=== PATIENT | male | born 1945 | race Caucasian/White ===

== ENCOUNTER 2016-04-27 19:10 | Inpatient (IN) | payer MEDICARE ==
[2016-04-27] MEDS ORDERED: ALBUTEROL SULFATE 0.083% NEB 2.5 MG/3 ML AMPUL NEB ONE (19:18)
[2016-04-27] MEDS ORDERED: MAGNESIUM SULFATE/D5W 2 GM/200 ML RTUPB IV ONE (19:19)
--- NOTE | 2016-04-27 19:32 | ER Document Report ---
ED General - General Stated Complaint: RESPITORY DISTRESS Cannot obtain history due to: Dementia, Unstable vital signs Notes: Patient is a 70-year-old male with past medical history of dementia who presents by EMS in severe respiratory distress. EMS states that they found the patient bradypneic with a respiratory rate of 4 and a pulse oximetry of 32%. Patient had apparently been found by family to be minimally responsive and EMS was called. He has no history of similar symptoms in the past. He was diagnosed as having a left lower lobe pneumonia in the beginning of April and has completed his antibiotics, did not note significant improvement. He still is currently have home palliative care services due to his progressive dementia and significant associated weight loss. History is otherwise limited secondary to patient's nonverbal status and critical nature at time of arrival. TRAVEL OUTSIDE OF THE [place] IN LAST 30 DAYS: No - Related Data Allergies/Adverse Reactions: Opioids - Morphine Analogues Allergy (Verified 04/28/16 01:09) NARCOTICS Allergy (Severe, Uncoded 02/27/12 14:13) Hallucinations/DELERIUM Home Medications: Current Home Medications Prednisone 20 mg PO DAILY 04/27/16 [History] Past Medical History - General Information source: Emergency Med Personnel Cannot obtain history due to: Dementia - Social History Smoking Status: Unknown if Ever Smoked Frequency of alcohol use: None Drug Abuse: None Lives with: Family Family History: Reviewed & Not Pertinent - Past Medical History Cardiac Medical History: Reports: Hx Hypertension - MEDICATED Denies: Hx Heart Attack Pulmonary Medical History: Denies: Hx Asthma Neurological Medical History: Denies: Hx Cerebrovascular Accident, Hx Seizures GI Medical History: Denies: Hx Hepatitis, Hx Hiatal Hernia, Hx Ulcer Infectious Medical History: Denies: Hx Hepatitis Past Surgical History: Denies: Hx Open Heart Surgery, Hx Pacemaker Review of Systems - Review of Systems -: Yes ROS unobtainable due to patient's medical condition Physical Exam - Vital signs Vitals: Resp Pulse Ox 24 H 88 L 04/27/16 19:14 04/27/16 19:14 Interpretation: Hypotensive, Tachycardic, Hypoxic, Tachypneic Notes: PHYSICAL EXAMINATION: GENERAL: Critically ill in appearance, ashen and marcos. In respiratory distress HEAD: Atraumatic, normocephalic. EYES: Pupils equal round and reactive to light, extraocular movements intact, sclera anicteric, conjunctiva are normal. ENT: nares patent, oropharynx clear without exudates. Dry mucous membranes. NECK: supple without lymphadenopathy LUNGS: Diminished breath sounds on the left relative to the right. Retractions in the supraclavicular and intercostal regions. Patient is in severe respiratory distress. HEART: Regular tachycardia. No murmurs gallops or rubs. ABDOMEN: Soft, rebound or guarding EXTREMITIES: no pitting or edema. No cyanosis. NEUROLOGICAL: Moves all extremities spontaneously but does not follow commands in any extremity. No verbal response. PSYCH: Severe dementia, no verbal response SKIN: Warm, Dry, normal turgor, no rashes or lesions noted. Course - Re-evaluation Re-evalutation: 04/27/16 19:27 Patient arrives in severe respiratory distress on CPAP by EMS. Initial respiratory rate is at 35 with intracostal and supraclavicular retractions. Scattered wheezing bilaterally. Patient was immediately transitioned to our BiPAP and started on a continuous albuterol nebulizer. An immediate bedside ultrasound was performed of the lungs and heart. Lung ultrasound shows no evidence of pneumothorax and no significant pulmonary edema. Bedside echocardiogram shows no regional wall motion abnormalities, no pericardial effusion or tamponade. RV is not dilated. A 1 L bolus has been started. Family did arrive and note that patient was recently diagnosed and pneumonia 20 days ago and has completed a course of outpatient antibiotics. He is currently on palliative care for end-stage dementia and has a current resting heart rate in the 100s at all times. Family and I have reviewed goals of care and have agreed to noninvasive measures including BiPAP, IV fluids, IV antibiotics, and comfort measures but have also established there will be no CPR, intubation, artificial feeding, central line access, or any procedure that is likely to cause significant discomfort. At this time patient remains critically ill and will require frequent reassessments. 04/27/16 20:10 Chest x-ray shows a large left pneumonia with cavitations concerning for possible aspiration pneumonia with staph superinfection. Patient has been started on vancomycin, Zosyn and clindamycin. Clinically appears relatively unchanged since placed on BiPAP. Fluids have been administered. Will continue to monitor closely 04/27/16 20:55 Lactate is elevated at 5 consistent with severe sepsis. Patient is responding to fluids, heart has decreased down to 110 at this time. Respiratory rate is also improved as patient's work of breathing. He continues to be altered but will intermittently attempt to remove the BiPAP mask. I have updated the family at this time regarding patient's ongoing critical condition. Will continue to monitor very closely. 04/27/16 21:35 has accepted for admission. Patient remains critical but stable at this time. - Vital Signs Vital signs: Temp Pulse Resp BP Pulse Ox 97.3 F 97 34 H 112/68 100 04/28/16 02:20 04/28/16 02:20 04/28/16 02:20 04/28/16 02:20 04/28/16 02:20 - Laboratory Result Diagrams: 04/27/16 19:35 04/27/16 19:36 Laboratory results interpreted by me: 04/27/16 04/27/16 04/27/16 19:35 19:36 19:36 WBC 30.0 H* RBC 3.92 L Hgb 9.1 L Hct 30.2 L MCV 77 L MCH 23.3 L MCHC 30.2 L RDW 16.4 H Plt Count 789 H Seg Neuts % (Manual) 88 H Band Neutrophils % 1 L Lymphocytes % (Manual) 9 L Monocytes % (Manual) 1 L Abs Neuts (Manual) 26.7 H Carbonic Acid ABG pH ABG pCO2 ABG HCO3 ABG Total CO2 BUN 31 H Glucose 296 H Lactic Acid 5.2 H Magnesium Alkaline Phosphatase 166 H Creatine Kinase < 20 L NT-Pro-B Natriuret Pep Total Protein 6.0 L Albumin 2.7 L Urine Protein Urine Ascorbic Acid 04/27/16 04/27/16 04/27/16 19:36 19:36 19:53 WBC RBC Hgb Hct MCV MCH MCHC RDW Plt Count Seg Neuts % (Manual) Band Neutrophils % Lymphocytes % (Manual) Monocytes % (Manual) Abs Neuts (Manual) Carbonic Acid ABG pH ABG pCO2 ABG HCO3 ABG Total CO2 BUN Glucose Lactic Acid Magnesium 3.1 H Alkaline Phosphatase Creatine Kinase NT-Pro-B Natriuret Pep 3570 H Total Protein Albumin Urine Protein 30 H Urine Ascorbic Acid 40 H 04/27/16 23:30 WBC RBC Hgb Hct MCV MCH MCHC RDW Plt Count Seg Neuts % (Manual) Band Neutrophils % Lymphocytes % (Manual) Monocytes % (Manual) Abs Neuts (Manual) Carbonic Acid 1.72 H ABG pH 7.30 L ABG pCO2 57.1 H ABG HCO3 27.2 H ABG Total CO2 28.9 H BUN Glucose Lactic Acid Magnesium Alkaline Phosphatase Creatine Kinase NT-Pro-B Natriuret Pep Total Protein Albumin Urine Protein Urine Ascorbic Acid - Diagnostic Test Radiology reviewed: Image reviewed, Reports reviewed Radiology results interpreted by me: 04/27/16 21:36 CXR: Left lower and upper lobe pneumonia with cavitations. - EKG Interpretation by Me Additional EKG results interpreted by me: 04/28/16 04:14 Sinus tachycardia. Rate 114. No ST elevations or depressions. QTC 469. Critical Care Note - Critical Care Note Total time excluding time spent on procedures (mins): 40 Comments: Critical care time spent obtaining history from patient or surrogate, discussions with consultants, development of treatment plan with patient or surrogate, evaluation of patient's response to treatment, examination of patient , ordering and performing treatments and interventions, ordering and review of laboratory studies, re-evaluation of patient's condition, ordering and review of radiographic studies and review of old charts Discharge - Discharge Clinical Impression: Severe sepsis, Respiratory distress Pneumonia Qualifiers: Pneumonia type: aspiration pneumonia Aspiration pneumonia type: unspecified Laterality: left Lung location: upper lobe of lung Qualified Code(s): J69.0 - Pneumonitis due to inhalation of food and vomit Condition: Critical Disposition: ADMITTED INPATIENT Admitting Provider: [place] [facility] Admitted: [facility]
[2016-04-27] MEDS ORDERED: NORMAL SALINE 1000 ML 1,000 ML IV ONE ×3 (19:36→20:56)
[2016-04-27 19:49] LABS: HEMATOCRIT 30.2 % (37.9-51.0); HEMOGLOBIN 9.1 g/dL (13.5-17.0); HGB HCT DIFFERENCE -2.9; MEAN CORPUSCULAR HEMOGLOBIN 23.3 pg (27.0-33.4); MEAN CORPUSCULAR HGB CONC 30.2 g/dL (32.0-36.0); MEAN CORPUSCULAR VOLUME 77 fl (80-97); RED BLOOD COUNT 3.92 10^6/uL (4.35-5.55); RED CELL DISTRIBUTION WIDTH 16.4 % (11.5-14.0)
[2016-04-27 20:06] LABS: ALANINE AMINOTRANSFERASE 45 U/L (21-72); ALBUMIN 2.7 g/dL (3.5-5.0); ALKALINE PHOSPHATASE 166 U/L (38-126); ANION GAP 16 (5-19); ASPARTATE AMINO TRANSFERASE 25 U/L (17-59); BILIRUBIN,TOTAL 0.4 mg/dL (0.2-1.3); BLOOD UREA NITROGEN 31 mg/dL (7-20); CALCIUM 8.9 mg/dL (8.4-10.2); CARBON DIOXIDE 28 mmol/L (22-30); CHLORIDE 101 mmol/L (98-107); CREATININE RESULT 0.89 mg/dL (0.52-1.25); GLUCOSE 296 mg/dL (75-110); POTASSIUM 4.3 mmol/L (3.6-5.0); SODIUM 144.5 mmol/L (137-145)
[2016-04-27 20:07] LABS: CREATINE KINASE < 20 U/L (55-170)
[2016-04-27] MEDS ORDERED: CLINDAMYCIN PHOSPHATE INJ 300 MG/2 ML SDV IV ONE (20:09)
[2016-04-27] MEDS ORDERED: VANCOMYCIN HCL INJ 1000 MG VIAL IV ONE (20:10)
[2016-04-27] MEDS ORDERED: PIPERACILLIN/TAZOBACTAM 3.375 GM VIAL IV ONE (20:10)
[2016-04-27 20:11] LABS: ANISOCYTOSIS 1+; BAND NEUTROPHILS % (MANUAL) 1 % (3-5); BASOPHILS % (MANUAL) 0 % (0-2); EOSINOPHILS % (MANUAL) 0 % (0-6); LYMPHOCYTES % (MANUAL) 9 % (13-45); MICROCYTOSIS SLIGHT; OVALOCYTES SLIGHT; POIKILOCYTOSIS SLIGHT; TOTAL CELLS COUNTED 100
[2016-04-27 20:12] LABS: TOXIC GRANULATION SLIGHT
[2016-04-27 20:25] LABS: CREATINE KINASE MB < 0.22 ng/mL (<4.55); TROPONIN I < 0.012 ng/mL
[2016-04-28 00:30] LABS: ARTERIAL BLOOD BASE EXCESS 0.2 mmol/L; ARTERIAL BLOOD O2 SATURATION 96.7 % (94-98)
[2016-04-28] MEDS ORDERED: VANCOMYCIN HCL 0 MG in DEXTROSE 5%-WATER 250 ML IV NR (00:45)
[2016-04-28] MEDS ORDERED: DEXTROSE 40% GEL 15 GM TUBE PO PRN ×2 (00:46)
[2016-04-28] MEDS ORDERED: DEXTROSE 50%-WATER 25 GM/50 ML DISP.SYRIN IV PRN ×2 (00:46)
[2016-04-28] MEDS ORDERED: GLUCAGON,HUMAN RECOMB 1 MG INJ IM PRN (00:46)
[2016-04-28] MEDS ORDERED: INSULIN LISPRO 100 UNIT/ML 3 ML VIAL SUBCUT PRN (00:46)
[2016-04-28] MEDS ORDERED: ACETAMINOPHEN 325 MG TABLET PO PRN (00:49)
[2016-04-28] MEDS ORDERED: ALBUTEROL SULFATE 0.083% NEB 2.5 MG/3 ML AMPUL NEB PRN (00:49)
[2016-04-28] MEDS ORDERED: GUAIFENESIN SYRP 200 MG/10 ML UDC PO PRN (00:49)
[2016-04-28 00:54] LABS: ADD ON TESTING BLD IN LAB ACKNOWLEDGE
[2016-04-28 01:10] LABS: MAGNESIUM 3.1 mg/dL (1.6-2.3)
[2016-04-28] MEDS ORDERED: CEFEPIME 2 GM/D5W RTU 2 GM/50 ML RTUPB IV ONE ×3 (01:30→05:00)
--- NOTE | 2016-04-28 01:33 | PDOC H&P ---
History of Present Illness Admission Date/PCP: 04/27/16 21:41 Pablo Lemus Patient complains of: DIFFICULTY BREATHING History of Present Illness: IRAIS KERR JR is a 70 year old male with reportedly no underlying chronic lung pathology, along with severe dementia, hypertension, prostatic hypertrophy, hyperlipidemia, who presents to the emergency room by EMS for evaluation of above complaint. Patient has been discussed with emergency room physician who evaluated the patient. Patient has underlying dementia, and is somewhat fatigued and is able to provide no history whatsoever in terms of acute or chronic events, review of systems, personal habits, family history, etc. and children are present, and are quite helpful informative. No inpatient records available for review. Patient was diagnosed with left-sided pneumonia the fifth of this month and was treated with a Z-Juan Manuel, along with tapering courses of steroids. For the past 10 days, has had a cough productive of gradually increasing amounts of mucus. No nausea vomiting, diarrhea or dysuria. No fever or shaking chills per se, although patient has had prominent night sweats over the past several days. Mild abdominal discomfort, only with a cough. Sudden worsening of his respiratory distress shortly prior to arrival. Significant respiratory distress upon arrival. Had already been started on CPAP by EMS. Aggressive evaluation and treatment by the emergency room physician has resulted in significant improvement in his work of breathing and clinical appearance. Please see emergency room physician admitting notes, which are reviewed. 30 pound unintentional weight loss over the past month or so, due at least in part to poor by mouth intake. Underlying obstructive sleep apnea, although recently with the onset of his pneumonia, has been noncompliant with his CPAP. Has been followed at home by palliative care nurse. Patient has portable DO NOT RESUSCITATE for severe dementia.. Laboratory results are listed in Faves and are reviewed. X-ray summary results are listed below, with full report(s) reviewed. . EKG reviewed. No old EKG available for comparison. Social history/personal habits: . Lives with . Ambulates without assistance. Has children. No tobacco use since August 2008. No alcohol or illicit drug use. Allergies/adverse reactions are listed in Faves and are reviewed. Home medications are reviewed by discussion with and review of a hand written list provided by family and are to be reconciled by nursing staff in [employer]. Home medications initially autopopulated into [employer] may not accurately reflect patient's true medications, dosages, and/or frequencies. REVIEW OF SYSTEMS: Constitutional: See history and present illness. Eyes: No current vision complaints. ENT: No swallowing problems or complaints. Partial hearing loss. Pulmonary: See history and present illness. Cardiovascular: No current complaints, including chest pain. Gastrointestinal: See history and present illness. Skin: No current complaints, including rashes. Hematologic: Easy bruising. Neurologic: No current complaints, including numbness or tingling. Musculoskeletal: No current complaints, including painful joints. Psychiatric: Anxiety depression; denies suicidal or homicidal ideation. Endocrine: No current complaints, including polyuria. Genitourinary: No current complaints, including dysuria. PHYSICAL EXAMINATION: 5 feet 11 inches tall. 60.3 kg. BMI 18.5 kg/m. Blood pressure 115/75. Pulse 97 and regular. 98% saturation on BiPAP 12/6, 100% FiO2. Respirations are 29 and unlabored. Temperature 98.2. Thin chronically ill-appearing male appearing a bit older than his stated age. Awake alert pleasant and cooperative. Mildly anxious, without agitation. Skin is warm and dry. No grossly obvious evidence of rash in areas of skin examined. No subcutaneous nodules palpated. ENT: Hearing grossly normal to normal conversation. Tongue midline on protrusion pink and slightly tacky. Exam slightly limited by BiPAP mask with attaching straps. Eyes: No scleral icterus. Pupils equal and reactive to light at 4 mm. [place] conjunctivae. Neck is supple and nontender to gentle active range of motion and palpation. Midline trachea. No palpable thyroid nodule mass enlargement or tenderness. Lymphatic: No palpable cervical or clavicular nodes. Neck and lymphatic exams limited by patient body habitus. Exam slightly limited by BiPAP mask with attaching straps. Psychiatric: Can't be adequately evaluated due to combination of his current status and underlying severe dementia. Lungs: Auscultation reveals clear breath sounds bilaterally. No use of accessory respiratory muscles. Intermittent slightly productive cough. Decreased breath sounds in the left lower hemithorax. Cardiovascular: Heart regular rate and rhythm, without gallop murmur or rub. No carotid or abdominal aortic bruits. No ankle or pedal edema. Faintly palpable dorsalis pedis pulses. Abdomen: soft, , slightly distended nontender with positive bowel sounds. Unable to adequately evaluate abdomen for masses or organomegaly due to distention. Extremities: Feet are warm and dry. No calf tenderness to compression. No grossly obvious visual evidence of calf swelling. Gentle manipulation of lower extremities fails to reveal any obvious evidence of injury or instability to knees hips or ankles. Slight muscle loss, left calf. 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 Patellar reflexes absent. Absent Babinski. Light touch can't be determined due to his current status.. Dorsiflexion and plantarflexion of feet 5 / 5 and symmetric. Past Medical History Cardiac Medical History: Reports: Hyperlipidema, Hypertension - MEDICATED Denies: Congestive Heart Failure, DVT, Myocardial Infarction, Pulmonary Embolism Pulmonary Medical History: Reports: Sleep Apnea Denies: Asthma EENT Medical History: Reports: Ears - Partial hearing loss Denies: Eyes, Throat Neurological Medical History: Denies: Hemorrhagic CVA, Ischemic CVA, Seizures Endocrine Medical History: Denies: Diabetes Mellitus Type 1, Diabetes Mellitus Type 2, Hyperthyroidism, Hypothyroidism Renal/ Medical History: Reports: Other - Prostatic hypertrophy Malignancy Medical History: Reports: Skin Cancer GI Medical History: Denies: Cirrhosis, Gastroesophageal Reflux Disease, Hepatitis, Hiatal Hernia , Peptic Ulcer Disease Musculoskeltal Medical History: Denies: Arthritis Skin Medical History: Denies: Eczema, Psoriasis Psychiatric Medical History: Reports: Dementia, Depression, General Anxiety Disorder Denies: Alcohol Dependency, Substance Abuse, Tobacco Dependency Hematology: Reports: Other - Easy bruising Infectious Medical History: Denies: Hepatitis B, Hepatitis C Past Surgical History Past Surgical History: Reports: Orthopedic Surgery - Left total knee replacement , Other - Open repair of an abdominal aortic aneurysm, 2008. Skin cancer excision. Social History Information Source: Relative, Emergency Med Personnel, [facility] Records Lives with: Spouse/Significant other Smoking Status: Former Smoker Frequency of Alcohol Use: None Hx Recreational Drug Use: No Drugs: None - Advance Directive Resuscitation Status: Do Not Resuscitate - Portable DO NOT RESUSCITATE on chart. Family History Parental Family History Reviewed: Yes Children Family History Reviewed: Yes Sibling(s) Family History Reviewed.: Yes Medication/Allergy Home Medications: Doxazosin Mesylate [Cardura 4 Mg Tablet] 4 mg PO DAILY 02/27/12 Benazepril HCl 20 mg PO DAILY 07/25/15 Lovastatin [Altoprev] 20 mg PO DAILY 07/25/15 Sertraline HCl 25 mg PO DAILY 07/25/15 Prednisone 20 mg PO DAILY 04/27/16 Allergies/Adverse Reactions: NARCOTICS Allergy (Severe, Uncoded 02/27/12 14:13) Hallucinations/DELERIUM Physical Exam Vital Signs: Temp Pulse Resp BP Pulse Ox 98.2 F 22 H 113/71 100 04/27/16 19:35 04/28/16 00:00 04/27/16 22:15 04/28/16 00:00 Intake & Output 04/26/16 04/27/16 04/28/16 00:59 00:59 00:59 Weight 60.3 kg Results Laboratory Results: 04/27/16 23:30 Carbonic Acid 1.72 H HCO3/H2CO3 Ratio 15:1 ABG pH 7.30 L ABG pCO2 57.1 H ABG pO2 99.2 ABG HCO3 27.2 H ABG O2 Saturation 96.7 ABG Base Excess 0.2 FiO2 100% Impressions: Chest X-Ray 04/27/16 19:35 IMPRESSION: LARGE AIRSPACE OPACITY LEFT LUNG WITH CENTRAL LUCENCIES COULD REPRESENT NECROSIS/ CAVITATION IN THE SETTING OF PNEUMONIA OR NEOPLASM. CORRELATE WITH PATIENT'S CLINICAL HISTORY AND CONSIDER FURTHER EVALUATION WITH CONTRAST-ENHANCED CT CHEST IF THIS IS A NEW FINDING. Assessment & Plan - Diagnosis (1) Acute respiratory failure Qualifiers: Respiratory failure complication: hypercapnia Qualified Code(s): J96.02 - Acute respiratory failure with hypercapnia Is this a current diagnosis for this admission?: Yes (2) Anemia Qualifiers: Anemia type: unspecified type Qualified Code(s): D64.9 - Anemia, unspecified Is this a current diagnosis for this admission?: YesPlan: No need for transfusion at present time. Follow-up CBC with differential. (3) Pneumonia involving left lung Qualifiers: Pneumonia type: due to unspecified organism Lung location: lower lobe of lung Qualified Code(s): J18.1 - Lobar pneumonia, unspecified organism Is this a current diagnosis for this admission?: YesPlan: Patient will be admitted under COPD exacerbation and pneumonia protocol. Incentive spirometry twice a day. Scheduled DuoNeb's. PRN albuterol nebs Solu-Medrol IV Pepcid for gastritis prophylaxis. Pulmonology consult. Antibiotics will consist of intravenous Levaquin and vancomycin, along with cefepime. Pharmacy to assist with vancomycin dosing.. I've encouraged family to remind patient not to get out of bed without notifying staff , to avoid a fall with injury. Knee high SCDs for DVT prophylaxis, along with subcutaneous heparin. Impression and plans were discussed with family, who concur. Time spent in evaluation and management of patient: 74 minutes. (4) Weight loss, non-intentional Is this a current diagnosis for this admission?: YesPlan: Likely due at least in part to underlying dementia. Failed swallow screen, so currently nothing by mouth. (5) DNR (do not resuscitate) Is this a current diagnosis for this admission?: YesPlan: Portable document on chart. Implications of DO NOT RESUSCITATE/DO NOT INTUBATE status discussed with and children. Discussed in layperson's terms. Implications understood. is the health care decision maker. Her conversation is lucid and appropriate. She desires DO NOT RESUSCITATE/DO NOT INTUBATE status. Will honor their wishes. (6) HTN (hypertension) Qualifiers: Hypertension type: essential hypertension Qualified Code(s): I10 - Essential (primary) hypertension Is this a current diagnosis for this admission?: YesPlan: Follow clinically. Nothing by mouth. When necessary parenteral medication. (7) Hyperlipidemia Qualifiers: Hyperlipidemia type: unspecified Qualified Code(s): E78.5 - Hyperlipidemia, unspecified Is this a current diagnosis for this admission?: YesPlan: Nothing by mouth.Resume home medications as appropriate once these have been reviewed and when oral intake resumes. (8) Dementia Qualifiers: Dementia type: unspecified type Dementia behavioral disturbance: with behavioral disturbance Qualified Code(s): F03.91 - Unspecified dementia with behavioral disturbance Is this a current diagnosis for this admission?: YesPlan: Family understands underlying confusion due to dementia will likely worsen while he is hospitalized. - Inpatient Certification Based on my medical assessment, after consideration of the patient's comorbidities, presenting symptoms, or acuity I expect that the services needed warrant INPATIENT care.: Yes I certify that my determination is in accordance with my understanding of Medicare's requirements for reasonable and necessary INPATIENT services [42 CFR 412.3e].: Yes Medical Necessity: Significant Comorbidiites Make Outpatient Treatment Too Risky , Need Close Monitoring Due to Risk of Patient Decompensation, Need For IV Fluids, Need For Continuous Telemetry Monitoring, Need for Nebulizer Therapy and Monitoring of Response, Need for IV Antibiotics, Risk of Complication if Not Cared For in Hospital, Risk of Diagnosis Which Will Require Inpatient Eval/ Care/Monitoring Post Hospital Care: D/C or Transfer Summary
[2016-04-28 01:50] LABS: AMORPHOUS SEDIMENT,URINE TRACE /HPF; APPEARANCE,URINE TURBID; BILIRUBIN,URINE NEGATIVE (NEGATIVE); GLUCOSE, URINE NEGATIVE (NEGATIVE); KETONES,URINE NEGATIVE (NEGATIVE); LEUKOCYTE ESTERASE,URINE NEGATIVE (NEGATIVE); NITRITE,URINE NEGATIVE (NEGATIVE); PROTEIN,URINE 30 mg/dL (NEGATIVE); URINE SPECIFIC GRAVITY 1.026; UROBILINOGEN,URINE NEGATIVE mg/dL (<2.0)
[2016-04-28] MEDS ORDERED: LEVOFLOXACIN 750 MG/D5W RTU 750 MG/150 ML RTUPB IV ONE (02:00)
[2016-04-28] MEDS: 1/2 NORMAL SALINE 1,000 ML IV PRN ×2 (03:24→18:51)
[2016-04-28] MEDS: METHYLPREDNISOLONE INJ 40 MG/1 ML SDV IV SCH ×3 (05:21→21:58)
[2016-04-28 05:38] LABS: VENOUS BLOOD BASE EXCESS 1.4 mmol/L; VENOUS BLOOD PCO2 41.2 mmHg (35-63); VENOUS BLOOD PH 7.42 (7.30-7.42)
[2016-04-28 05:53] LABS: HEMATOCRIT 26.8 % (37.9-51.0); HEMOGLOBIN 8.2 g/dL (13.5-17.0); HGB HCT DIFFERENCE -2.2; MEAN CORPUSCULAR HGB CONC 30.6 g/dL (32.0-36.0); MEAN CORPUSCULAR VOLUME 75 fl (80-97); RED BLOOD COUNT 3.57 10^6/uL (4.35-5.55); RED CELL DISTRIBUTION WIDTH 16.1 % (11.5-14.0); WHITE BLOOD COUNT 28.8 10^3/uL (4.0-10.5)
[2016-04-28 05:56] LABS: ANION GAP 10 (5-19); BLOOD UREA NITROGEN 33 mg/dL (7-20); CALCIUM 7.9 mg/dL (8.4-10.2); CARBON DIOXIDE 25 mmol/L (22-30); CHLORIDE 110 mmol/L (98-107); CREATININE RESULT 0.79 mg/dL (0.52-1.25); GLUCOSE 169 mg/dL (75-110); POTASSIUM 3.9 mmol/L (3.6-5.0); SODIUM 145.4 mmol/L (137-145)
[2016-04-28 06:11] LABS: BASOPHILS % (MANUAL) 0 % (0-2); EOSINOPHILS % (MANUAL) 0 % (0-6); LYMPHOCYTES % (MANUAL) 2 % (13-45); TOTAL CELLS COUNTED 100
[2016-04-28 06:14] LABS: ANISOCYTOSIS 1+; HYPOCHROMASIA 1+; MICROCYTOSIS 1+; TOXIC GRANULATION 1+
[2016-04-28] MEDS ORDERED: IPRATROPIUM/ALBUTEROL 0.5-2.5 MG/3 ML AMPUL NEB SCH (08:00)
[2016-04-28] MEDS ORDERED: CEFEPIME 2 GM/D5W RTU 2 GM/50 ML RTUPB IV SCH (10:00)
[2016-04-28] MEDS ORDERED: ASPIRIN 300 MG SUPP, RECTAL PR SCH (10:00)
[2016-04-28] MEDS: HEPARIN SOD (PORCINE) 5,000 UNIT/ML 1 ML SYRINGE SUBCUT SCH ×2 (10:59→21:58)
[2016-04-28] MEDS: FAMOTIDINE INJ/PF 20 MG/2 ML SDV IV SCH ×2 (11:00→21:58)
[2016-04-28] MEDS ORDERED: GUAIFENESIN 600 MG TABLET.SA PO ONE (12:00)
[2016-04-28] MEDS ORDERED: PIPERACILLIN SODIUM/TAZOBACTAM 4.5 GM in NORMAL SALINE 100 ML IV ONE (13:00)
[2016-04-28] MEDS ORDERED: VANCOMYCIN HCL 750 MG in DEXTROSE 5%-WATER 250 ML IV ONE (15:00)
--- NOTE | 2016-04-28 15:17 | EKG REPORT ---
SEVERITY:- ABNORMAL ECG - SINUS TACHYCARDIA ATRIAL PREMATURE COMPLEX PROBABLE LEFT ATRIAL ABNORMALITY PROBABLE INFERIOR INFARCT, AGE INDETERMINATE : Confirmed by: Princess Pitts MD 28-Apr-2016 15:16:45
[2016-04-28] MEDS: GUAIFENESIN SYRP 200 MG/10 ML UDC PO SCH ×2 (17:12→21:58)
[2016-04-28] MEDS: ACETAMINOPHEN 650 MG SUPP.RECT PR PRN ×2 (17:12→23:11)
--- NOTE | 2016-04-28 17:49 | PDOC PROGRESS REPORT ---
Subjective Progress Note for:: 04/28/16 Subjective:: The patient was seen earlier today on rounds. The patient is unable to provide any history. Family is present the bedside I given the patient's care. It appears that the patient was unable to clear secretions I discussed comfort measures. We have agreed to proceed with aggressive pneumonia management today including NTS suction if needed and will address how the patient tolerated this tomorrow and discuss management after that. There have been no reported episodes of vomiting nor diarrhea. Physical Exam Vital Signs: Temp Pulse Resp BP Pulse Ox 97.8 F 85 22 H 141/81 H 97 04/28/16 16:00 04/28/16 16:00 04/28/16 15:48 04/28/16 16:00 04/28/16 16:00 Intake & Output 04/26/16 04/27/16 04/28/16 23:59 23:59 23:59 Intake Total 378 Output Total 150 Balance 228 Weight 56.5 kg General appearance: PRESENT: disheveled, thin Head exam: PRESENT: atraumatic, normocephalic Eye exam: PRESENT: conjunctiva pale, EOMI, PERRLA. ABSENT: scleral icterus Ear exam: PRESENT: normal external ear exam Mouth exam: PRESENT: dry mucosa, tongue midline Neck exam: ABSENT: carotid bruit, JVD, lymphadenopathy, thyromegaly Respiratory exam: PRESENT: rhonchi, symmetrical, tachypnea, wheezes. ABSENT: rales, unlabored Cardiovascular exam: PRESENT: RRR. ABSENT: diastolic murmur, rubs, systolic murmur Pulses: PRESENT: normal dorsalis pedis pul Vascular exam: PRESENT: normal capillary refill GI/Abdominal exam: PRESENT: normal bowel sounds, soft. ABSENT: distended, guarding, mass, organolmegaly, rebound, tenderness Rectal exam: PRESENT: deferred Extremities exam: ABSENT: calf tenderness, clubbing, pedal edema Neurological exam: PRESENT: alert, altered, awake. ABSENT: motor sensory deficit Psychiatric exam: PRESENT: other - Demented Skin exam: PRESENT: dry, intact, warm. ABSENT: cyanosis, rash Results Laboratory Results: 04/28/16 05:26 04/28/16 05:26 04/28/16 04/28/16 04/28/16 00:50 05:26 05:26 WBC 28.8 H RBC 3.57 L Hgb 8.2 L Hct 26.8 L MCV 75 L MCH 23.0 L MCHC 30.6 L RDW 16.1 H Plt Count 457 H Seg Neutrophils % Not Reportable Lymphocytes % Not Reportable Monocytes % Not Reportable Eosinophils % Not Reportable Basophils % Not Reportable Absolute Neutrophils Not Reportable Absolute Lymphocytes Not Reportable Absolute Monocytes Not Reportable Absolute Eosinophils Not Reportable Absolute Basophils Not Reportable VBG pH VBG pCO2 VBG HCO3 VBG Base Excess Sodium 145.4 H Potassium 3.9 Chloride 110 H Carbon Dioxide 25 Anion Gap 10 BUN 33 H Creatinine 0.79 Est GFR ( Amer) > 60 Est GFR (Non-Af Amer) > 60 Glucose 169 H Lactic Acid 2.4 H Calcium 7.9 L 04/28/16 05:26 WBC RBC Hgb Hct MCV MCH MCHC RDW Plt Count Seg Neutrophils % Lymphocytes % Monocytes % Eosinophils % Basophils % Absolute Neutrophils Absolute Lymphocytes Absolute Monocytes Absolute Eosinophils Absolute Basophils VBG pH 7.42 VBG pCO2 41.2 VBG HCO3 26.0 VBG Base Excess 1.4 Sodium Potassium Chloride Carbon Dioxide Anion Gap BUN Creatinine Est GFR ( Amer) Est GFR (Non-Af Amer) Glucose Lactic Acid Calcium Impressions: Chest X-Ray 04/27/16 19:35 IMPRESSION: LARGE AIRSPACE OPACITY LEFT LUNG WITH CENTRAL LUCENCIES COULD REPRESENT NECROSIS/ CAVITATION IN THE SETTING OF PNEUMONIA OR NEOPLASM. CORRELATE WITH PATIENT'S CLINICAL HISTORY AND CONSIDER FURTHER EVALUATION WITH CONTRAST-ENHANCED CT CHEST IF THIS IS A NEW FINDING. Assessment & Plan - Diagnosis (1) Acute respiratory failure Qualifiers: Respiratory failure complication: hypercapnia Qualified Code(s): J96.02 - Acute respiratory failure with hypercapnia Is this a current diagnosis for this admission?: YesPlan: Patient's repeat blood gas is much improved. Will continue nasal cannula (2) Anemia Qualifiers: Anemia type: unspecified type Qualified Code(s): D64.9 - Anemia, unspecified Is this a current diagnosis for this admission?: Yes (3) Pneumonia Qualifiers: Pneumonia type: aspiration pneumonia Aspiration pneumonia type: unspecified Laterality: left Lung location: upper lobe of lung Qualified Code(s): J69.0 - Pneumonitis due to inhalation of food and vomit Is this a current diagnosis for this admission?: YesPlan: High suspicion for aspiration. Continue broad-spectrum coverage. The patient is rhonchorous throughout. Discussed exploring it with the family however the patient is unable to spit it up. If the patient does not get any benefit or is distressed from sputum collection can have NTS (4) Severe sepsis Is this a current diagnosis for this admission?: YesPlan: The family is pursuing conservative management at this time. White count did improve. (5) Weight loss, non-intentional Is this a current diagnosis for this admission?: Yes (6) Dementia Qualifiers: Dementia type: Alzheimer's disease Dementia behavioral disturbance: with behavioral disturbance Is this a current diagnosis for this admission?: Yes (7) HTN (hypertension) Qualifiers: Hypertension type: essential hypertension Qualified Code(s): I10 - Essential (primary) hypertension Is this a current diagnosis for this admission?: Yes (8) Hyperlipidemia Qualifiers: Hyperlipidemia type: unspecified Qualified Code(s): E78.5 - Hyperlipidemia, unspecified Is this a current diagnosis for this admission?: Yes (9) DNR (do not resuscitate) Is this a current diagnosis for this admission?: Yes - Time Time Spent with patient: on this visit including assessment, plan, physical examination, family meeting, and patient education is 35 minutes. Time Spent with patient: 35 or more minutes Medications reviewed and adjusted accordingly: Yes Disposition: The patient is a DO NOT RESUSCITATE DO NOT INTUBATE. Pending patient's symptomatology and diagnostic findings will reevaluate as needed.
[2016-04-28] MEDS ORDERED: CEFEPIME HCL 2 GM in DEXTROSE 5%-WATER 50 ML IV SCH (18:00)
[2016-04-28] MEDS: PIPERACILLIN SODIUM/TAZOBACTAM 4.5 GM in NORMAL SALINE 100 ML IV SCH (21:57)
[2016-04-28] MEDS ORDERED: GUAIFENESIN 600 MG TABLET.SA PO SCH (22:00)
[2016-04-28] MEDS ORDERED: LEVOFLOXACIN 750 MG/D5W RTU 750 MG/150 ML RTUPB IV SCH (22:00)
[2016-04-29] MEDS: 1/2 NORMAL SALINE 1,000 ML IV PRN (03:48)
[2016-04-29] MEDS: PIPERACILLIN SODIUM/TAZOBACTAM 4.5 GM in NORMAL SALINE 100 ML IV SCH ×2 (03:48→08:43)
[2016-04-29] MEDS ORDERED: 1/2 NORMAL SALINE 1,000 ML IV PRN (04:20)
[2016-04-29 05:02] LABS: HEMATOCRIT 25.2 % (37.9-51.0); HGB HCT DIFFERENCE -1.2; MEAN CORPUSCULAR HEMOGLOBIN 23.4 pg (27.0-33.4); MEAN CORPUSCULAR HGB CONC 31.6 g/dL (32.0-36.0); MEAN CORPUSCULAR VOLUME 74 fl (80-97); RED CELL DISTRIBUTION WIDTH 16.2 % (11.5-14.0); WHITE BLOOD COUNT 15.8 10^3/uL (4.0-10.5)
[2016-04-29 05:22] LABS: VENOUS BLOOD BASE EXCESS 1.2 mmol/L; VENOUS BLOOD HCO3 26.7 mmol/L (20-32); VENOUS BLOOD PCO2 46.9 mmHg (35-63); VENOUS BLOOD PH 7.37 (7.30-7.42)
[2016-04-29 05:28] LABS: ANION GAP 8 (5-19); BLOOD UREA NITROGEN 34 mg/dL (7-20); CALCIUM 8.2 mg/dL (8.4-10.2); CARBON DIOXIDE 25 mmol/L (22-30); CHLORIDE 111 mmol/L (98-107); CREATININE RESULT 0.74 mg/dL (0.52-1.25); GLUCOSE 107 mg/dL (75-110); MAGNESIUM 2.5 mg/dL (1.6-2.3); SODIUM 144.4 mmol/L (137-145)
[2016-04-29] MEDS: METHYLPREDNISOLONE INJ 40 MG/1 ML SDV IV SCH (05:49)
[2016-04-29] MEDS ORDERED: VANCOMYCIN HCL 750 MG in DEXTROSE 5%-WATER 250 ML IV SCH (06:00)
[2016-04-29] MEDS: ACETAMINOPHEN 650 MG SUPP.RECT PR PRN (08:43)
[2016-04-29] MEDS ORDERED: SERTRALINE HCL 50 MG TABLET PO SCH (10:00)
[2016-04-29] MEDS ORDERED: ASPIRIN 81 MG TABLET, ENT COATED PO SCH (10:00)
[2016-04-29] MEDS ORDERED: DOXAZOSIN MESYLATE 4 MG TABLET PO SCH (10:00)
[2016-04-29] MEDS ORDERED: (PENDING PHARMACY ID) (Sertraline Hcl [Zoloft] 25 MG) PO SCH (10:00)
[2016-04-29] MEDS: GUAIFENESIN SYRP 200 MG/10 ML UDC PO SCH (11:38)
[2016-04-29] MEDS: FAMOTIDINE INJ/PF 20 MG/2 ML SDV IV SCH (11:38)
[2016-04-29] MEDS: HEPARIN SOD (PORCINE) 5,000 UNIT/ML 1 ML SYRINGE SUBCUT SCH (11:47)
--- NOTE | 2016-04-29 13:16 | PDOC DISCHARGE SUMMARY ---
General - Admit/Disc Date/PCP Admission Date/Primary Care Provider: 04/27/16 23:55 Pablo Lemus Discharge Date: 04/29/16 - Discharge Diagnosis (1) Alzheimer's dementia with behavioral disturbance Is this a current diagnosis for this admission?: YesSummary: End-stage (2) Aspiration pneumonia Is this a current diagnosis for this admission?: YesSummary: Secondary to #1 (3) Severe sepsis Is this a current diagnosis for this admission?: Yes (4) Acute respiratory failure Is this a current diagnosis for this admission?: YesSummary: Secondary to #2 (5) Anemia Is this a current diagnosis for this admission?: Yes (6) Weight loss, non-intentional Is this a current diagnosis for this admission?: Yes (7) HTN (hypertension) Is this a current diagnosis for this admission?: Yes (8) Hyperlipidemia Is this a current diagnosis for this admission?: Yes (9) DNR (do not resuscitate) Is this a current diagnosis for this admission?: Yes - Additional Information Resuscitation Status: Do Not Resuscitate - Portable DO NOT RESUSCITATE on chart. Discharge Diet: As Tolerated Discharge Activity: Activity As Tolerated Home Medications: Aspirin [Ecotrin 81 mg EC Tablet] 81 mg PO DAILY 04/28/16 Benazepril HCl [Lotensin 20 mg Tablet] 20 mg PO DAILY 04/28/16 Doxazosin Mesylate [Cardura 4 mg Tablet] 4 mg PO DAILY 04/28/16 Lovastatin [Altoprev] 20 mg PO DAILY 04/28/16 Prednisone [Deltasone 20 mg Tablet] 20 mg PO DAILY 04/28/16 Sertraline HCl [Zoloft] 25 mg PO DAILY 04/28/16 Additional Information: Medications as per hospice History of Present Illness Patient complains of: Difficulty breathing History of Present Illness: IRAIS KERR JR is a 70 year old male with reportedly no underlying chronic lung pathology, along with severe dementia, hypertension, prostatic hypertrophy, hyperlipidemia, who presents to the emergency room by EMS for evaluation of difficulty breathing. Patient has underlying dementia, and is somewhat fatigued and is able to provide no history whatsoever in terms of acute or chronic events, review of systems, personal habits, family history, etc. and children were present, and are quite helpful informative. No inpatient records available for review. Patient was diagnosed with left-sided pneumonia the fifth of this month and was treated with a Z-Juan Manuel, along with tapering courses of steroids. For the past 10 days, has had a cough productive of gradually increasing amounts of mucus. No nausea vomiting, diarrhea or dysuria. No fever or shaking chills per se, although patient has had prominent night sweats over the past several days. Mild abdominal discomfort, only with a cough. Sudden worsening of his respiratory distress shortly prior to arrival. Significant respiratory distress upon arrival. Had already been started on CPAP by EMS. Aggressive evaluation and treatment by the emergency room physician has resulted in significant improvement in his work of breathing and clinical appearance. Please see emergency room physician admitting notes, which are reviewed. 30 pound unintentional weight loss over the past month or so, due at least in part to poor by mouth intake. Underlying obstructive sleep apnea, although recently with the onset of his pneumonia, has been noncompliant with his CPAP.Has been followed at home by palliative care nurse. Patient has portable DO NOT RESUSCITATE for severe dementia.. Hospital Course Hospital Course: The patient was placed on broad-spectrum antibiotic(s), nebulizers, expectorants, supplemental O2, incentive spirometry and flutter valve. Sputum culture was obtained and unable to be obtained. The patient has a history of having failed swallow eval in the past. Patient had been taking oral intake for a number of days prior to admission. The patient was agitated by his nasal cannula. The patient had an excessive number of secretions but was unable to clear these. The family stated the patient's wishes were not to have any artificial nutrition and that he had expressed this in the past. The patient had been followed by a palliative care and family is aware that he is near the end of his disease process. After much discussion on the morning of 04/29/2016 the family has elected to proceed with comfort care in the hospice facility setting. Physical Exam Vital Signs: Temp Pulse Resp BP Pulse Ox 97.7 F 85 18 113/62 91 L 04/29/16 07:55 04/29/16 08:00 04/29/16 08:00 04/29/16 07:55 04/29/16 08:00 Intake & Output 04/27/16 04/28/16 04/29/16 23:59 23:59 23:59 Intake Total 1829 1500 Output Total 900 300 Balance 929 1200 Weight 56.5 kg 56.5 kg General appearance: PRESENT: disheveled, thin Head exam: PRESENT: atraumatic, normocephalic Eye exam: PRESENT: conjunctiva pale, EOMI, PERRLA. ABSENT: scleral icterus Ear exam: PRESENT: normal external ear exam Mouth exam: PRESENT: dry mucosa, tongue midline Neck exam: ABSENT: carotid bruit, JVD, lymphadenopathy, thyromegaly Respiratory exam: PRESENT: rhonchi, symmetrical, tachypnea, wheezes. ABSENT: rales, unlabored Cardiovascular exam: PRESENT: RRR. ABSENT: diastolic murmur, rubs, systolic murmur Pulses: PRESENT: normal dorsalis pedis pul Vascular exam: PRESENT: normal capillary refill GI/Abdominal exam: PRESENT: normal bowel sounds, soft. ABSENT: distended, guarding, mass, organolmegaly, rebound, tenderness Rectal exam: PRESENT: deferred Extremities exam: ABSENT: calf tenderness, clubbing, pedal edema Neurological exam: PRESENT: alert, altered, awake. ABSENT: motor sensory deficit Psychiatric exam: PRESENT: other - Demented Skin exam: PRESENT: dry, intact, warm. ABSENT: cyanosis, rash Results Laboratory Results: Labs- Last Values WBC 15.8 10^3/uL (4.0-10.5) H 04/29/16 04:52 RBC 3.40 10^6/uL (4.35-5.55) L 04/29/16 04:52 Hgb 8.0 g/dL (13.5-17.0) L 04/29/16 04:52 Hct 25.2 % (37.9-51.0) L 04/29/16 04:52 MCV 74 fl (80-97) L 04/29/16 04:52 MCH 23.4 pg (27.0-33.4) L 04/29/16 04:52 MCHC 31.6 g/dL (32.0-36.0) L 04/29/16 04:52 RDW 16.2 % (11.5-14.0) H 04/29/16 04:52 Plt Count 393 10^3/uL (150-450) 04/29/16 04:52 Total Counted 100 04/28/16 05:26 Seg Neutrophils % Not Reportable 04/28/16 05:26 Seg Neuts % (Manual) 98 % (42-78) H 04/28/16 05:26 Band Neutrophils % 1 % (3-5) L 04/27/16 19:35 Lymphocytes % Not Reportable 04/28/16 05:26 Lymphocytes % (Manual) 2 % (13-45) L 04/28/16 05:26 Atypical Lymphs % 1 % (0) 04/27/16 19:35 Monocytes % Not Reportable 04/28/16 05:26 Monocytes % (Manual) 0 % (3-13) L 04/28/16 05:26 Eosinophils % Not Reportable 04/28/16 05:26 Eosinophils % (Manual) 0 % (0-6) 04/28/16 05:26 Basophils % Not Reportable 04/28/16 05:26 Basophils % (Manual) 0 % (0-2) 04/28/16 05:26 Absolute Neutrophils Not Reportable 04/28/16 05:26 Abs Neuts (Manual) 28.2 10^3/uL (1.7-8.2) H 04/28/16 05:26 Absolute Lymphocytes Not Reportable 04/28/16 05:26 Abs Lymphs (Manual) 0.6 10^3/uL (0.5-4.7) 04/28/16 05:26 Absolute Monocytes Not Reportable 04/28/16 05:26 Abs Monocytes (Manual) 0.0 10^3/uL (0.1-1.4) L 04/28/16 05:26 Absolute Eosinophils Not Reportable 04/28/16 05:26 Absolute Eos (Manual) 0.0 10^3/uL (0.0-0.6) 04/28/16 05:26 Absolute Basophils Not Reportable 04/28/16 05:26 Abs Basophils (Manual) 0.0 10^3/uL (0.0-0.2) 04/28/16 05:26 Toxic Granulation 1+ 04/28/16 05:26 Platelet Comment INCREASED 04/28/16 05:26 Hypochromasia 1+ 04/28/16 05:26 Poikilocytosis SLIGHT 04/27/16 19:35 Anisocytosis 1+ 04/28/16 05:26 Microcytosis 1+ 04/28/16 05:26 Ovalocytes SLIGHT 04/27/16 19:35 Carbonic Acid 1.72 mmol/L (1.05-1.35) H 04/27/16 23:30 HCO3/H2CO3 Ratio 15:1 04/27/16 23:30 ABG pH 7.30 (7.35-7.45) L 04/27/16 23:30 ABG pCO2 57.1 mmHg (35-45) H 04/27/16 23:30 ABG pO2 99.2 mmHg (80-100) 04/27/16 23:30 ABG HCO3 27.2 mmol/L (20-26) H 04/27/16 23:30 ABG Total CO2 28.9 mmol/L (23-27) H 04/27/16 23:30 ABG O2 Saturation 96.7 % (94-98) 04/27/16 23:30 ABG Base Excess 0.2 mmol/L 04/27/16 23:30 VBG pH 7.37 (7.30-7.42) 04/29/16 04:52 VBG pCO2 46.9 mmHg (35-63) 04/29/16 04:52 VBG HCO3 26.7 mmol/L (20-32) 04/29/16 04:52 VBG Base Excess 1.2 mmol/L 04/29/16 04:52 FiO2 100% 04/27/16 23:30 Sodium 144.4 mmol/L (137-145) 04/29/16 04:52 Potassium 4.0 mmol/L (3.6-5.0) 04/29/16 04:52 Chloride 111 mmol/L (98-107) H 04/29/16 04:52 Carbon Dioxide 25 mmol/L (22-30) 04/29/16 04:52 Anion Gap 8 (5-19) 04/29/16 04:52 BUN 34 mg/dL (7-20) H 04/29/16 04:52 Creatinine 0.74 mg/dL (0.52-1.25) 04/29/16 04:52 Est GFR ( Amer) > 60 (>60) 04/29/16 04:52 Est GFR (Non-Af Amer) > 60 (>60) 04/29/16 04:52 Glucose 107 mg/dL (75-110) 04/29/16 04:52 POC Glucose 142 mg/dL (70-110) H 04/29/16 07:56 Lactic Acid 2.4 mmol/L (0.7-2.1) H 04/28/16 00:50 Calcium 8.2 mg/dL (8.4-10.2) L 04/29/16 04:52 Magnesium 2.5 mg/dL (1.6-2.3) H 04/29/16 04:52 Total Bilirubin 0.4 mg/dL (0.2-1.3) 04/27/16 19:36 Direct Bilirubin 0.0 mg/dL (0.0-0.3) 04/27/16 19:36 AST 25 U/L (17-59) 04/27/16 19:36 ALT 45 U/L (21-72) 04/27/16 19:36 Alkaline Phosphatase 166 U/L (38-126) H 04/27/16 19:36 Creatine Kinase < 20 U/L (55-170) L 04/27/16 19:36 CK-MB (CK-2) < 0.22 ng/mL (<4.55) 04/27/16 19:36 Troponin I < 0.012 ng/mL 04/27/16 19:36 NT-Pro-B Natriuret Pep 3570 pg/mL (5-900) H 04/27/16 19:36 Total Protein 6.0 g/dL (6.3-8.2) L 04/27/16 19:36 Albumin 2.7 g/dL (3.5-5.0) L 04/27/16 19:36 Urine Color YELLOW 04/27/16 19:53 Urine Appearance TURBID 04/27/16 19:53 Urine pH 5.0 (5.0-9.0) 04/27/16 19:53 Ur Specific [place] 1.026 04/27/16 19:53 Urine Protein 30 mg/dL (NEGATIVE) H 04/27/16 19:53 Urine Glucose (UA) NEGATIVE mg/dL (NEGATIVE) 04/27/16 19:53 Urine Ketones NEGATIVE mg/dL (NEGATIVE) 04/27/16 19:53 Urine Blood NEGATIVE (NEGATIVE) 04/27/16 19:53 Urine Nitrite NEGATIVE (NEGATIVE) 04/27/16 19:53 Urine Bilirubin NEGATIVE (NEGATIVE) 04/27/16 19:53 Urine Urobilinogen NEGATIVE mg/dL (<2.0) 04/27/16 19:53 Ur Leukocyte Esterase NEGATIVE (NEGATIVE) 04/27/16 19:53 Urine WBC (Auto) 7 /HPF 04/27/16 19:53 Urine RBC (Auto) 1 /HPF 04/27/16 19:53 Squamous Epi Cells Auto <1 /HPF 04/27/16 19:53 Amorphous Sediment Auto TRACE /HPF 04/27/16 19:53 Urine Mucus (Auto) RARE /LPF 04/27/16 19:53 Urine Ascorbic Acid 40 (NEGATIVE) H 04/27/16 19:53 Impressions: Chest X-Ray 04/27/16 19:35 IMPRESSION: LARGE AIRSPACE OPACITY LEFT LUNG WITH CENTRAL LUCENCIES COULD REPRESENT NECROSIS/ CAVITATION IN THE SETTING OF PNEUMONIA OR NEOPLASM. CORRELATE WITH PATIENT'S CLINICAL HISTORY AND CONSIDER FURTHER EVALUATION WITH CONTRAST-ENHANCED CT CHEST IF THIS IS A NEW FINDING. Qualifiers PATEINT BEING DISCHARGED WITH ANY OF THE FOLLOWING DIAGNOSIS?: No Plan Discharge Plan: The patient will be transported to the hospice house Time Spent: Greater than 30 Minutes
[2016-04-29 13:19] VITALS: BP 110/75
[2016-04-30 19:20] LABS: PATH REVIEW PATHOLOGIST REVIEWED
== END 2016-04-29 14:04 | disposition hospice, inpatient (51) | DRG 871 ==
LOC: ER 19:10 → EH 21:41 → UNDOADMIN 21:41 → EH 23:55 → 3W 04-28 01:59
PROVIDERS: ADMIT Family Medicine; ATTEND Family Medicine
PROC: 5A09457 Assistance with Respiratory Ventilation, 24-96 Consecutive Hours, Continuous Positive Airway Pressure (ICD-10-PCS; principal; 2016-04-27)
PROC: 3E0F73Z Introduction of Anti-inflammatory into Respiratory Tract, Via Natural or Artificial Opening (ICD-10-PCS; 2016-04-28)
DX: A41.9 Sepsis, unspecified organism (principal); J69.0 Pneumonitis due to inhalation of food and vomit; J96.02 Acute respiratory failure with hypercapnia; F02.81 Dementia in other diseases classified elsewhere, unspecified severity, with behavioral disturbance; F05 Delirium due to known physiological condition; J44.1 Chronic obstructive pulmonary disease with (acute) exacerbation; Z68.1 Body mass index [BMI] 19.9 or less, adult; G30.9 Alzheimer's disease, unspecified; R65.20 Severe sepsis without septic shock; D64.9 Anemia, unspecified; R63.4 Abnormal weight loss; I10 Essential (primary) hypertension; E78.5 Hyperlipidemia, unspecified; N40.0 Benign prostatic hyperplasia without lower urinary tract symptoms; G47.30 Sleep apnea, unspecified; F32.9 Major depressive disorder, single episode, unspecified; F41.1 Generalized anxiety disorder; Z51.5 Encounter for palliative care; Z66 Do not resuscitate; Z79.899 Other long term (current) drug therapy; Z91.19 Patient's noncompliance with other medical treatment and regimen; Z85.828 Personal history of other malignant neoplasm of skin; Z96.652 Presence of left artificial knee joint; Z87.891 Personal history of nicotine dependence; Z88.8 Allergy status to other drugs, medicaments and biological substances; Z88.6 Allergy status to analgesic agent
CPT/HCPCS: 36415; 71010; 80048; 80053; 81001; 82550; 82553; 82803; 82962; 83605; 83735; 83880; 84484; 85025; 85027; 87040; 93005; 93010; 94640; 94660; 96361; 96365; 96367; 96368; 99291; J0692; J1644; J1956; J2543; J2920; J3370; J3475; J3490; J7030; J7060; J7620; S0028